=== PATIENT | female | born 1945 | race Caucasian/White ===

== ENCOUNTER 2018-09-27 15:56 | Observation (INO) ==
[2018-09-27] MEDS ORDERED: Metoprolol Inj 5 MG/5 ML Vial IV.PUSH ONE (16:27)
[2018-09-27] MEDS ORDERED: Morphine Inj 4 MG/ML Vial IV.PUSH ONE (16:40)
[2018-09-27 16:46] LABS: Chloride 103 meq/L (98-107); Potassium 3.6 meq/L (3.5-5.1); Sodium 137 meq/L (136-145)
[2018-09-27 16:48] LABS: Baso % (Auto) 0.4 % (0.0-2.0); Eos # (Auto) 0.1 th/mm3 (0.0-0.4); Eos % (Auto) 1.9 % (0.0-4.0); Hematocrit 38.9 % (35.0-46.0); Hemoglobin 13.8 gm/dL (11.6-15.3); Lymph # (Auto) 2.1 th/mm3 (1.0-4.8); Lymph % (Auto) 29.5 % (9.0-44.0); Mean Corpuscular HGB Conc 35.6 % (32.0-36.0); Mean Corpuscular Hemoglobin 31.2 pg (27.0-34.0); Mean Corpuscular Volume 87.7 fL (80.0-100.0); Mean Platelet Volume 8.4 fL (7.0-11.0); Mono # (Auto) 0.5 th/mm3 (0.0-0.9); Mono % (Auto) 7.1 % (0.0-8.0); Neut # (Auto) 4.4 th/mm3 (1.8-7.7); Neut % (Auto) 61.1 % (16.0-70.0); Platelet Count 252 th/mm3 (150-450); Red Blood Count 4.43 mil/mm3 (4.00-5.30); Red Cell Distribution Width 13.8 % (11.6-17.2); White Blood Count 7.1 th/mm3 (4.0-11.0)
[2018-09-27 16:49] LABS: Calcium 8.5 mg/dL (8.5-10.1)
[2018-09-27 16:50] LABS: Albumin 3.9 g/dL (3.4-5.0); Anion Gap 4 meq/L (5-15); Blood Urea Nitrogen 17 mg/dL (7-18); Carbon Dioxide 29.6 meq/L (21.0-32.0); Glucose,Random 116 mg/dL (74-106); Lipase 114 U/L (73-393); Prothrombin Time 9.8 sec (9.8-11.6)
--- NOTE | 2018-09-27 16:50 | XR ---
EXAM DATE: 09/27/2018 4:46 PM EST AGE/SEX: 73 years / Female INDICATIONS: Chest pain. High BP. CLINICAL DATA: This is the patient's initial encounter. Patient reports that signs and symptoms have been present for 1 day and indicates a pain score of 5/10. MEDICAL/SURGICAL HISTORY: . hx blood clots in rt knee and chest as well . RT ACL repair. Inguin al hernia repair. Colon resection. . COMPARISON: [facility], CT ABDOMEN & PELVIS W CONTRAST, 10/08/2015. [facility], RIBS RIGHT(W PA CXR MIN 3VWS), 10/08/2015. . FINDINGS: Trace scarring of the right mid lung and left base. No pneumonic infiltrate demonstrated. No pleural effusion or pneumothorax. Heart size within normal limits. Thoracic aorta is tortuous. CONCLUSION: No acute cardiopulmonary disease demonstrated. Electronically signed by: Ulices Dewey MD Board Certified Radiologist 09/27/2018 4:49 PM EST
[2018-09-27 16:53] LABS: Alanine Aminotransferase 21 U/L (10-53); Aspartate Aminotransferase 18 U/L (15-37); Glomerular Filtration Rate 65 mL/min (>89)
[2018-09-27 16:54] LABS: Total Protein 7.6 g/dL (6.4-8.2)
[2018-09-27 16:56] LABS: Alkaline Phosphatase 120 U/L (45-117)
--- NOTE | 2018-09-27 17:55 | ED ---
HPI General Chief Complaint: Chest Pain Stated Complaint: High BP/Chest Pain/Dizzy Time Seen by Provider: 09/27/18 16:04 Source: patient History of Present Illness HPI narrative: 73-year-old female with a past medical history of hypertension, ischemic colitis status post resection, PE, DVT on Eliquis and an anxiety presents to the emergency room complaining of chest pain midsternal radiating to left shoulder left arm since this afternoon. Patient went to a store to check her blood pressure and it was extremely elevated over 200. Patient also had some associated nausea, shortness of breath, dizziness, abdominal pain and a headache. Chest pain with heaviness in nature 10 out of 10 worse with exertion. Patient denies fever, chills, cough, sore throat, runny nose, lower extremity swelling. Related Data Home Medications Medication Instructions Recorded Confirmed apixaban [Eliquis] 5 mg PO BID 09/26/18 09/27/18 gabapentin 600 mg PO HS 09/26/18 09/27/18 losartan 100 mg PO DAILY 09/26/18 09/27/18 pantoprazole [Protonix] 40 mg PO BID 09/26/18 09/27/18 quetiapine [Seroquel] 25 mg PO HS 09/26/18 09/27/18 alprazolam [Xanax] 0.25 mg PO BID PRN 09/27/18 09/27/18 tramadol [Ultram] 50 mg PO Q6H PRN 09/27/18 09/27/18 Allergies Allergy/AdvReac Type Severity Reaction Status Date / Time adhesive Allergy Intermediate Rash Verified 09/27/18 16:15 Sulfa (Sulfonamide Allergy Intermediate Hives Verified 09/27/18 16:15 Antibiotics) Review of Systems ROS: all other systems reviewed are negative Constitutional Denies fever(s) Eyes Denies change in vision ENT Denies headache(s) and Denies nasal congestion Cardiovascular Reports chest pain Respiratory Denies dyspnea Gastrointestinal Denies abdominal pain Genitourinary Denies difficulty voiding Musculoskeletal Denies myalgias Integumentary/Breasts Denies rash Neurologic Denies headache(s) Psychiatric Denies depression Endocrine Denies polyuria Hematologic/Lymphatic Denies easy bruising [facility] Medical History Medical History Anxiety (Acute) Colitis (Acute) DVT (deep venous thrombosis) (Acute) Diverticulitis (Acute) GERD (gastroesophageal reflux disease) (Acute) HTN (hypertension) (Acute) History of Clostridium difficile colitis (Acute) Pulmonary embolism (Acute) Right knee meniscal tear (Acute) Shingles (Acute) Surgical History Surgical History History of colon resection (Acute) Social History Social History Substance History: Active Abuse Smoking Status: Current every day smoker Tobacco Type: Cigarettes How Often Do You Have a Drink Containing Alcohol: 4 or more times a week Recent Travel in [facility] within the Last 8 Weeks: No Recent Out of Country Travel within the Last 8 Weeks: No Substance Abuse Detail Alcohol: Substance Use Status: Active Route Used Substance Abuse: By Mouth Substance Frequency: 2 mixed drinks each night Immunization History Tetanus Immunization: >5 Years Exam Narrative Exam Narrative: GENERAL: Patient is alert and oriented -3 SKIN: Focused skin assessment warm/dry. HEAD: Atraumatic. Normocephalic. EYES: Pupils equal and round. No scleral icterus. No injection or drainage. ENT: No nasal bleeding or discharge. Mucous membranes pink and moist. NECK: Trachea midline. No JVD. CARDIOVASCULAR: Regular rate and rhythm. No murmur appreciated. RESPIRATORY: No accessory muscle use. Clear to auscultation. Breath sounds equal bilaterally. GASTROINTESTINAL: Abdomen soft, tender epigastric area, nondistended. Hepatic and splenic margins not palpable. MUSCULOSKELETAL: No obvious deformities. No clubbing. No cyanosis. No edema. NEUROLOGICAL: Awake and alert. No obvious cranial nerve deficits. Motor grossly within normal limits. Normal speech. PSYCHIATRIC: Appropriate mood and affect; insight and judgment normal. Course Reevaluation(s) Reevaluation #1: Patient condition improved after a dose of metoprolol and pain medication. Patient is chest pain-free at this time. Blood pressure improved to 167/87 at this time I will admit the patient to chest pain center for observation Time: 18:49 Initial Documented Vital Signs Temperature 98.1 F 09/27/18 16:10 Pulse Rate 79 09/27/18 16:10 Respiratory Rate 18 09/27/18 16:10 Blood Pressure 222/93 H 09/27/18 16:10 Pulse Oximetry 98 09/27/18 16:10 Last Documented Vital Signs Temperature 98.1 F 09/27/18 16:10 Pulse Rate 59 L 09/27/18 17:55 Respiratory Rate 18 09/27/18 17:55 Blood Pressure 167/87 H 09/27/18 17:55 Pulse Oximetry 94 L 09/27/18 17:55 Medical Decision Making MDM Narrative Medical Screen Exam Complete: Yes Emergency Medical Condition: Yes Lab Data Result diagrams: 09/27/18 16:10 09/27/18 16:10 Lab Results 09/27/18 09/27/18 09/27/18 Range/Units 16:10 16:10 16:10 CBC w Diff Auto diff final WBC 7.1 (4.0-11.0) th/mm3 RBC 4.43 (4.00-5.30) mil/mm3 Hgb 13.8 (11.6-15.3) gm/dL Hct 38.9 (35.0-46.0) % MCV 87.7 (80.0-100.0) fL MCH 31.2 (27.0-34.0) pg MCHC 35.6 (32.0-36.0) % RDW 13.8 (11.6-17.2) % Plt Count 252 (150-450) th/mm3 MPV 8.4 (7.0-11.0) fL Neut % (Auto) 61.1 (16.0-70.0) % Lymph % (Auto) 29.5 (9.0-44.0) % Mccracken % (Auto) 7.1 (0.0-8.0) % Eos % (Auto) 1.9 (0.0-4.0) % Baso % (Auto) 0.4 (0.0-2.0) % Neut # (Auto) 4.4 (1.8-7.7) th/mm3 Lymph # (Auto) 2.1 (1.0-4.8) th/mm3 Mccracken # (Auto) 0.5 (0.0-0.9) th/mm3 Eos # (Auto) 0.1 (0.0-0.4) th/mm3 Baso # (Auto) 0.0 (0.0-0.2) th/mm3 WBC Differential . Differential Comment . PT 9.8 (9.8-11.6) sec INR 1.0 Ratio Sodium 137 (136-145) meq/L Potassium 3.6 (3.5-5.1) meq/L Chloride 103 (98-107) meq/L Carbon Dioxide 29.6 (21.0-32.0) meq/L Anion Gap 4 L (5-15) meq/L BUN 17 (7-18) mg/dL Creatinine 0.85 (0.50-1.00) mg/dL Estimated GFR 65 L (>89) mL/min Random Glucose 116 H (74-106) mg/dL Calcium 8.5 (8.5-10.1) mg/dL Magnesium 2.0 (1.5-2.5) mg/dL Total Bilirubin 0.5 (0.2-1.0) mg/dL AST 18 (15-37) U/L ALT 21 (10-53) U/L Alkaline Phosphatase 120 H (45-117) U/L Troponin I Less than 0.02 L (0.02-0.05) ng/mL B-Natriuretic Peptide (0-100) pg/mL Total Protein 7.6 (6.4-8.2) g/dL Albumin 3.9 (3.4-5.0) g/dL Lipase 114 (73-393) U/L 09/27/18 Range/Units 16:10 CBC w Diff WBC (4.0-11.0) th/mm3 RBC (4.00-5.30) mil/mm3 Hgb (11.6-15.3) gm/dL Hct (35.0-46.0) % MCV (80.0-100.0) fL MCH (27.0-34.0) pg MCHC (32.0-36.0) % RDW (11.6-17.2) % Plt Count (150-450) th/mm3 MPV (7.0-11.0) fL Neut % (Auto) (16.0-70.0) % Lymph % (Auto) (9.0-44.0) % Mccracken % (Auto) (0.0-8.0) % Eos % (Auto) (0.0-4.0) % Baso % (Auto) (0.0-2.0) % Neut # (Auto) (1.8-7.7) th/mm3 Lymph # (Auto) (1.0-4.8) th/mm3 Mccracken # (Auto) (0.0-0.9) th/mm3 Eos # (Auto) (0.0-0.4) th/mm3 Baso # (Auto) (0.0-0.2) th/mm3 WBC Differential Differential Comment PT (9.8-11.6) sec INR Ratio Sodium (136-145) meq/L Potassium (3.5-5.1) meq/L Chloride (98-107) meq/L Carbon Dioxide (21.0-32.0) meq/L Anion Gap (5-15) meq/L BUN (7-18) mg/dL Creatinine (0.50-1.00) mg/dL Estimated GFR (>89) mL/min Random Glucose (74-106) mg/dL Calcium (8.5-10.1) mg/dL Magnesium (1.5-2.5) mg/dL Total Bilirubin (0.2-1.0) mg/dL AST (15-37) U/L ALT (10-53) U/L Alkaline Phosphatase (45-117) U/L Troponin I (0.02-0.05) ng/mL B-Natriuretic Peptide 52 (0-100) pg/mL Total Protein (6.4-8.2) g/dL Albumin (3.4-5.0) g/dL Lipase (73-393) U/L Imaging Data Radiologist's impression: Chest X-Ray 09/27/18 16:26 CONCLUSION: No acute cardiopulmonary disease demonstrated. Thoracic Aorta CT 09/27/18 16:37 CONCLUSION: 1. Bibasilar densities likely atelectasis. 2. No thoracic/aortic aneurysm or dissection. 3. Heterogeneous thyroid gland with small nodules. ECG Data Attestation: I personally reviewed and interpreted this ECG as follows: Discharge Plan Discharge Disposition Patient Disposition: ED Admit(ED Internal Use Only) Discharge Condition Condition: Fair Discharge Order Discharge Orders: ED Use Only Admit Order (Routine); Ordered 09/27/18 Ordered By: Dixon Parra Discharge Details Discharge Comment: Patient's case has been discussed with the attending physician for admission. Diagnosis: Chest pain, Accelerated hypertension Physicians Team ED Provider: Dixon Parra Primary Care Provider: Primary Care Physici,No Rxs /Orders / Referrals /Forms Prescriptions: No Action quetiapine [Seroquel] 25 mg Tablet 25 mg PO HS RF: 0 gabapentin 600 mg Tablet 600 mg PO HS RF: 0 pantoprazole [Protonix] 20 mg Tablet,Delayed Release (Dr/Ec) 40 mg PO BID RF: 0 losartan 100 mg Tablet 100 mg PO DAILY RF: 0 apixaban [Eliquis] 5 mg Tablet 5 mg PO BID RF: 0 alprazolam [Xanax] 0.25 mg Tablet 0.25 mg PO BID PRN (Reason: Anxiety) RF: 0 tramadol [Ultram] 50 mg tablet 50 mg PO Q6H PRN (Reason: Pain) RF: 0 Discharge Instructions Patient Printed Instructions: Chest Pain (ED) Status ED Status: With Doctor
--- NOTE | 2018-09-27 18:07 | CT ---
EXAM DATE: 09/27/2018 6:01 PM EST AGE/SEX: 73 years / Female INDICATIONS: Anterior chest pain radiating to the back. CLINICAL DATA: This is the patient's initial encounter. Patient reports that signs and symptoms have been present for 2 days and indicates a pain score of 6/10. MEDICAL/SURGICAL HISTORY: Diverticulitis. Deep venous thrombosis. Gastroesophageal reflux disease . PE. Hypertension. Colon resection. RADIATION DOSE: 13.21 CTDI (mGy) COMPARISON: [facility], CT ABDOMEN & PELVIS W CONTRAST, 10/08/2015. . TECHNIQUE: Volumetric scanning was performed using a multi-row detector CT scanner during bolus infu renate of 95 ml Omnipaque 350 (iohexol) nonionic water-soluble contrast as a single exam dose. The da ta was post processed with a variety of visualization algorithms including full volume maximum intens ity projection, multi-planar sliding thin slab reformation, curved planar reformation, and surface re ndering techniques. Using automated exposure control and adjustment of the mA and/or kV according to patient size, radiation dose was kept as low as reasonably achievable to obtain optimal diagnostic q uality images. DICOM format image data is available electronically for review and comparison. FINDINGS: Lungs: There is no consolidation or pneumothorax. 5 mm nodule right lower lobe. Bibasilar densities likely atelectasis. Mild to moderate centrilobular emphysema No pleural fluid is present. Mediastinum: No abnormally enlarged lymph nodes by CT criteria. No axillary or hilar abnormalities a re identified. Abdomen: The liver and spleen are free of focal defects. The gallbladder and pancreas demonstrate no abnormality. The adrenal glands are normal. The kidneys demonstrate no evidence of solid renal mass or hydronephrosis. No free fluid or abdominal masses are identified. No para-aortic adenopathy is see n. Pelvis: No evidence of free fluid or pelvic mass. No abnormally enlarged inguinal or retroperitoneal lymph nodes are present. The bladder is unremarkable. Thoracic Aorta: The thoracic aortic root is normal with normal branching of the great vessels. Ther e is no evidence of aneurysm or dissection. Mild atherosclerotic changes. Abdominal Aorta: Mild atherosclerotic changes without aneurysm or dissection. The renal arteries ar e patent bilaterally. The proximal celiac and superior mesenteric arteries are patent and normal in diameter. Pelvic Vessels: The internal iliac and external iliac vessels are patent without aneurysm or stenosi s. CONCLUSION: 1. Bibasilar densities likely atelectasis. 2. No thoracic/aortic aneurysm or dissection. 3. Heterogeneous thyroid gland with small nodules. Electronically signed by: Walter Blair MD Board Certified Radiologist 09/27/2018 6:06 PM EST
[2018-09-27] MEDS ORDERED: Morphine Inj 4 MG/ML Vial IV.PUSH PRN (21:14)
[2018-09-27] MEDS ORDERED: Sod Chloride 0.9% Inj 1,000 ML IV.CONT SCH (21:15)
[2018-09-27] MEDS ORDERED: ALPRAZolam 0.25 MG Tablet PO PRN (21:16)
[2018-09-27] MEDS ORDERED: QUEtiapine 25 MG Tablet PO SCH (21:20)
[2018-09-27 21:59] LABS: Creatine Kinase 36 U/L (26-192)
[2018-09-27] MEDS ORDERED: Gabapentin 300 MG Capsule PO SCH (22:45)
[2018-09-27] MEDS: Heparin - SQ 10,000 UNITS/ML Vial SQ SCH (22:52)
[2018-09-28 00:27] LABS: Troponin I 0.02 ng/mL (0.02-0.05)
[2018-09-28 08:17] VITALS: BP 144/65; PULSE 62; RESP 20; TEMP 96.7; O2SAT 97
[2018-09-28] MEDS: Heparin - SQ 10,000 UNITS/ML Vial SQ SCH (08:47)
--- NOTE | 2018-09-28 09:17 | P.HPIM ---
History of Present Illness Primary Care Physician: No Primary Care Physician Chief Complaint: Lightheadedness, chest pain and elevated BP History of Present Illness: 73-year-old female who past medical history of PE, DVT on Eliquis, hypertension presented to the ED yesterday for evaluation for an acute onset of lightheadedness neck followed by substernal chest pain with radiation to the left shoulder and arm.. She also had some associated nausea and shortness of breath. Apparently patient proceeded to go to check her blood pressure and found systolic BP to be over 200 and came to the ED for further evaluation. While in the ED, patient was found to have SBP of 222. This morning, she had improvement of chest pain and denies any shortness of breath. She is currently normotensive. ACS ruled out per protocol with serial cardiac enzyme and EKGs. Review of Systems Review of Systems: all other systems reviewed are negative [facility] Medical History Medical History Anxiety (Acute) Colitis (Acute) DVT (deep venous thrombosis) (Acute) Diverticulitis (Acute) GERD (gastroesophageal reflux disease) (Acute) HTN (hypertension) (Acute) History of Clostridium difficile colitis (Acute) Pulmonary embolism (Acute) Right knee meniscal tear (Acute) Shingles (Acute) Surgical History Surgical History History of colon resection (Acute) Social History Social History Substance History: No History of Abuse Second Hand Smoke Exposure: Yes Smoking Status: Current every day smoker Tobacco Type: Cigarettes How Often Do You Have a Drink Containing Alcohol: 4 or more times a week Recent Travel in [place] within the Last 8 Weeks: No Recent Out of Country Travel within the Last 8 Weeks: No Substance Abuse Detail Alcohol: Substance Use Status: Active Route Used Substance Abuse: By Mouth Substance Frequency: 2 mixed drinks each night Immunization History Tetanus Immunization: >5 Years Medications and Allergies Allergies Allergy/AdvReac Type Severity Reaction Status Date / Time adhesive Allergy Intermediate Rash Verified 09/27/18 16:15 Sulfa (Sulfonamide Allergy Intermediate Hives Verified 09/27/18 16:15 Antibiotics) Home Medications Medication Instructions Recorded Confirmed Type apixaban [Eliquis] 5 mg PO BID 09/26/18 09/27/18 History gabapentin 600 mg PO HS 09/26/18 09/27/18 History losartan 100 mg PO DAILY 09/26/18 09/27/18 History pantoprazole [Protonix] 40 mg PO BID 09/26/18 09/27/18 History quetiapine [Seroquel] 25 mg PO HS 09/26/18 09/27/18 History alprazolam [Xanax] 0.25 mg PO BID PRN 09/27/18 09/27/18 History tramadol [Ultram] 50 mg PO Q6H PRN 09/27/18 09/27/18 History Active Medications: Active Medications Alprazolam (Xanax) 0.25 mg PO BID PRN PRN Reason: Anxiety Last Admin: 09/27/18 21:51 Dose: 0.25 mg Apixaban (Eliquis) 5 mg PO BID [facility] Last Admin: 09/28/18 08:52 Dose: 5 mg Gabapentin (Neurontin) 600 mg PO [facility] Last Admin: 09/27/18 22:50 Dose: 600 mg Heparin Sodium (Porcine) (Heparin Inj) 5,000 units SQ Q12H [facility] Last Admin: 09/28/18 08:47 Dose: Not Given Sodium Chloride (Ns Inj) 1,000 mls @ 70 mls/hr IV.CONT .[id number] [facility] Last Admin: 09/27/18 22:52 Dose: 70 mls/hr Losartan Potassium (Cozaar) 100 mg PO DAILY [facility] Last Admin: 09/28/18 08:52 Dose: 100 mg Morphine Sulfate (Morphine Inj) 2 mg IV.PUSH Q4H PRN PRN Reason: PAIN SCALE 8 TO 10 Last Admin: 09/27/18 21:50 Dose: 2 mg Quetiapine Fumarate (Seroquel) 25 mg PO [facility] Last Admin: 09/27/18 22:50 Dose: 25 mg Sodium Chloride (Ns Flush) 2 ml IV.FLUSH BID [facility] Last Admin: 09/28/18 08:47 Dose: Not Given Sodium Chloride (Ns Flush) 2 ml IV.FLUSH PRN PRN PRN Reason: FLUSH AFTER USING IV ACCESS Physical Exam Vital signs: Vital Signs 09/27/18 16:10 09/27/18 16:25 09/27/18 17:55 Temperature 98.1 F Pulse Rate 79 72 59 L Respiratory Rate 18 18 18 Blood Pressure 222/93 H 151/87 H 167/87 H Pulse Oximetry 98 98 94 L 09/27/18 19:05 09/27/18 20:00 09/27/18 21:40 Temperature 98.0 F Pulse Rate 84 62 Respiratory Rate 20 Blood Pressure 140/69 Pulse Oximetry 95 99 09/27/18 22:10 09/27/18 22:31 09/27/18 22:35 Temperature Pulse Rate 62 60 Respiratory Rate 20 20 Blood Pressure 138/77 Pulse Oximetry 09/27/18 22:55 09/28/18 00:00 09/28/18 00:48 Temperature 97.4 F L Pulse Rate 96 H 62 Respiratory Rate 18 18 Blood Pressure 139/78 142/67 H Pulse Oximetry 95 88 L 94 L 09/28/18 04:00 09/28/18 07:15 09/28/18 08:00 Temperature 98.4 F 96.7 F L Pulse Rate 55 L 62 Respiratory Rate 18 20 Blood Pressure 125/59 L 144/65 H Pulse Oximetry 91 L 99 97 Intake & Output 09/27/18 09/28/18 09/28/18 18:59 06:59 18:59 Output Total 1600 / 1600 Balance -1600 / -1600 Weight 61 kg 60.5 kg Output: Urine 1600 / 1600 Other: # Voids 1 Date of Last Bowel Movement 09/27/18 Weight On Admission 57.153 kg Results Labs CBC & Chem 7: 09/27/18 16:10 09/27/18 16:10 Imaging Impressions Chest X-Ray 09/27/18 16:26 CONCLUSION: No acute cardiopulmonary disease demonstrated. Thoracic Aorta CT 09/27/18 16:37 CONCLUSION: 1. Bibasilar densities likely atelectasis. 2. No thoracic/aortic aneurysm or dissection. 3. Heterogeneous thyroid gland with small nodules. Caprini VTE Risk Assessment Caprini VTE Risk Assessment: Moderate/High Risk (score >= 2) Caprini Risk Assessment Model: Point Value = 1 Point Value = 2 Point Value = 3 Point Value = 5 Age 41-60 Minor surgery BMI > 25 kg/m2 Swollen legs Varicose veins or History of unexplained or recurrent spontaneous Oral contraceptives or hormone replacement Sepsis (< 1 month) Serious lung disease, including pneumonia (< 1 month) Abnormal pulmonary function Acute myocardial infarction Congestive heart failure (< 1 month) History of inflammatory bowel disease Medical patient at bed rest Age 61-74 Arthroscopic surgery Major open surgery (> 45 min) Laparoscopic surgery (> 45 min) Malignancy Confined to bed (> 72 hours) Immobilizing plaster cast Central venous access Age >= 75 History of VTE Family history of VTE Factor V Leiden Prothrombin [id number] Lupus anticoagulant Anticardiolipin antibodies Elevated serum homocysteine Heparin-induced thrombocytopenia Other congenital or acquired thrombophilia Stroke (< 1 month) Elective arthroplasty Hip, pelvis, or leg fracture Acute spinal cord injury (< 1 month) Prophylaxis Regimen: Total Risk Factor Score Risk Level Prophylaxis Regimen 0-1 Low Early ambulation 2 Moderate Order ONE of the following: *Sequential Compression Device (SCD) *Heparin 5000 units SQ BID 3-4 Higher Order ONE of the following medications: *Heparin 5000 units SQ TID *Enoxaparin/Lovenox 40 mg SQ daily (WT < 150 kg, CrCl > 30 mL/min) *Enoxaparin/Lovenox 30 mg SQ daily (WT < 150 kg, CrCl > 10-29 mL/min) *Enoxaparin/Lovenox 30 mg SQ BID (WT < 150 kg, CrCl > 30 mL/min) AND/OR *Sequential Compression Device (SCD) 5 or more Highest Order ONE of the following medications: *Heparin 5000 units SQ TID (Preferred with Epidurals) *Enoxaparin/Lovenox 40 mg SQ daily (WT < 150 kg, CrCl > 30 mL/min) *Enoxaparin/Lovenox 30 mg SQ daily (WT < 150 kg, CrCl > 10-29 mL/min) *Enoxaparin/Lovenox 30 mg SQ BID (WT < 150 kg, CrCl > 30 mL/min) AND *Sequential Compression Device (SCD) Assessment and Plan Plan 73-year-old female with Malignant hypertension Resolved with treatment Currently patient normotensive on home medications Hypertension Continue losartan and start hydralazine 50 mg p.o. twice daily Atypical chest pain Unlikely ACS Aorta CTA noted in review without any acute finding Chest x-ray noted in review and negative Likely secondary to above malignant hypertension Will hold on stress test, patient can follow outpatient with PCP and cardiology History of DVT, PE Continue chronic oral anticoagulationAdeline Patient's condition tremendously improved since admission, therefore she will be discharged home Discharge patient to home Condition on discharge: Improved Regular Diet as tolerated Ad Laverne activity Rx written: Hydralazine 50 mg p.o. twice daily Follow-up with primary care physician H&P: Quality VTE Deep Vein Thrombosis/Pulmonary Embolism Present on Admission: No
--- NOTE | 2018-09-28 22:42 | ECG ---
Date Performed: 09/28/2018 Time Performed: 01:02:15 PTAGE: 73 years EKG: Sinus rhythm WITH FIRST DEGREE AV BLOCK ABNORMAL ECG PREVIOUS TRACING : 09/27/2018 20.57 DOCTOR: Alexsander Gaines Interpretating Date/Time 09/28/2018 22:41:28
--- NOTE | 2018-09-28 22:51 | ECG ---
Date Performed: 09/27/2018 Time Performed: 20:57:30 PTAGE: 73 years EKG: Sinus rhythm WITH FIRST DEGREE AV BLOCK ABNORMAL ECG PREVIOUS TRACING : 09/27/2018 16.03 DOCTOR: Alexsander Gaines Interpretating Date/Time 09/28/2018 22:51:18
--- NOTE | 2018-09-29 06:36 | ECG ---
Date Performed: 09/27/2018 Time Performed: 16:03:36 PTAGE: 73 years EKG: Sinus rhythm NORMAL ECG NO PREVIOUS TRACING DOCTOR: Alexsander Gaines Interpretating Date/Time 09/29/2018 06:35:35
== END 2018-09-28 09:41 | disposition home or self-care (01) ==
LOC: PHED 15:56 → PHEDA 15:56 → PH3 22:12
PROVIDERS: ADMIT Hospitalist; ATTEND Hospitalist
DX: Z79.01 Long term (current) use of anticoagulants; Z86.718 Personal history of other venous thrombosis and embolism; R91.8 Other nonspecific abnormal finding of lung field; I10 Essential (primary) hypertension; K21.9 Gastro-esophageal reflux disease without esophagitis; F41.9 Anxiety disorder, unspecified; Z86.711 Personal history of pulmonary embolism; E04.2 Nontoxic multinodular goiter; F17.210 Nicotine dependence, cigarettes, uncomplicated; R07.89 Other chest pain; Z79.899 Other long term (current) drug therapy
CPT/HCPCS: 71010; 71045; 71275; 74175; 80053; 82550; 83520; 83690; 83735; 83880; 84484; 85025; 85610; 90774; 90775; 93005; 96374; 96375; 96376; 99285; C8952; G0378; J2270; J2405; J7030; Q9967